=== PATIENT | male | born 1955 | race Caucasian/White ===

== ENCOUNTER 2016-05-11 04:12 | Emergency (ER) | payer BC, OTHER ==
[~2016-05-11] VITALS: Ht 170.2 cm; Wt 88.5 kg
--- NOTE | ~2016-05-11 | EKG ---
[address] [address] ELECTROCARDIOGRAM REPORT Name: ZBIGNIEW GARNETT Room #: [facility]P 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
[~2016-05-11 04:12] MED LIST: AMLODIPINE BESYL5 MG PO; AUGMENTIN 875875 MG PO; COZAAR 50 MG TA50 M2 PO; MOBIC; VICODIN PO
[2016-05-11 05:14] LABS: ABSOLUTE NEUTROPHILS 15.3 thou/uL (1.4-8.2); BASOPHILS 0.3 % (0.0-2.0); EOSINOPHILS 0.7 % (0.0-3.0); HEMATOCRIT 49.2 % (42.0-52.0); HEMOGLOBIN 16.7 gm/dL (14.0-18.0); LYMPHOCYTES 11.3 % (24.0-44.0); MCH 30.3 pg (26.0-34.0); MCV 89.2 fL (80.0-100.0); MONOCYTES 10.7 % (1.0-8.0); PLATELET COUNT 236 thou/uL (150-400); RBC 5.52 mil/uL (4.50-6.00); RDW 13.5 % (10.5-14.5); WBC 19.9 thou/uL (4.0-11.0)
[2016-05-11 05:16] LABS: MANUAL DIFF NO
[2016-05-11 05:18] LABS: ANION GAP 11 mmol/L (7-16); BUN 22 mg/dL (7-18); CALCIUM 9.1 mg/dL (8.5-10.1); CHLORIDE 104 mmol/L (98-107); CO2 21 mmol/L (21-32); CREATININE 1.6 mg/dL (0.6-1.3); GLUCOSE 126 mg/dL (70-99); POTASSIUM 3.7 mmol/L (3.5-5.1); SODIUM 136 mmol/L (136-145)
[2016-05-11 05:23] LABS: ALBUMIN 3.2 g/dL (3.4-5.0); ALKALINE PHOSPHATASE 97 U/L (46-116); DIRECT BILIRUBIN < 0.1 mg/dL (<0.1-0.3); SGOT 23 U/L (15-37); SGPT 38 U/L (30-65); TOTAL BILIRUBIN 0.5 mg/dL (<0.1-1.0); TOTAL PROTEIN 7.3 g/dL (6.4-8.2)
[2016-05-11] MEDS ORDERED: ZOFRAN ODT4 MG PO (06:25)
[2016-05-11 06:55] VITALS: BP 116/63
== END 2016-05-11 10:39 ==
LOC: ER 04:12
PROVIDERS: Emergency Medicine
DX: R11.2 Nausea with vomiting, unspecified (principal); R19.7 Diarrhea, unspecified; Z98.890 Other specified postprocedural states; K21.9 Gastro-esophageal reflux disease without esophagitis

== ENCOUNTER 2018-05-12 13:03 | Emergency (ER) | payer BC, OTHER ==
[~2018-05-12] VITALS: Ht 172.7 cm; Wt 83.9 kg
[~2018-05-12 13:03] MED LIST changes: +ZOFRAN ODT4 MG PO
[2018-05-12] MEDS ORDERED: LOSARTAN-HCTZ1 EAC1 PO (13:18)
[2018-05-12] MEDS ORDERED: CLONIDINE HCL0.1 MG PO (13:19)
[2018-05-12 14:24] VITALS: BP 189/131
== END 2018-05-12 14:26 | disposition home or self-care (01) ==
LOC: ER 13:03
DX: R04.0 Epistaxis (principal); G43.909 Migraine, unspecified, not intractable, without status migrainosus; K21.9 Gastro-esophageal reflux disease without esophagitis